=== PATIENT | male | born 1995 | race Two or more races ===

== ENCOUNTER 2020-07-26 11:48 | Emergency (ER) | payer BC ==
[~2020-07-26] VITALS: Ht 182.9 cm; Wt 80.7 kg
--- NOTE | 2020-07-26 12:14 | NUR ---
woke up with severe back pain this morning
[2020-07-26] MEDS ORDERED: oxyCODONE/APAP (5/325 MG) 1 UDTAB TABLET ONE ×2 (12:37→12:38)
[2020-07-26] MEDS: oxyCODONE/APAP (5/325 MG) 1 UDTAB TABLET PO ONE (12:38)
--- NOTE | 2020-07-26 12:49 | NUR ---
Patient discharged to home in stable condition. Written and verbal after care instructions given. Patient verbalizes understanding of instruction.
[2020-07-26 12:50] VITALS: BP 138/80
== END 2020-07-26 12:50 | disposition home or self-care (01) ==
LOC: ER 12:27
DX: M54.5 Low back pain (principal); G89.29 Other chronic pain